=== PATIENT | male | born 1965 | race Two or more races ===

== ENCOUNTER 2021-12-14 15:26 | Emergency (ER) | payer BC ==
[~2021-12-14] VITALS: Ht 188 cm; Wt 101.2 kg
[2021-12-14 15:55] VITALS: BP_SYST 144
[2021-12-14 17:11] LABS: BILIRUBIN,URINE NEGATIVE (NEGATIVE); BLOOD, URINE NEGATIVE (NEGATIVE); CLARITY/URINE CLEAR (CLEAR); COLOR,URINE YELLOW (YELLOW); GLUCOSE,URINE NEGATIVE (NEGATIVE); KETONES,URINE NEGATIVE (NEGATIVE); LEUKOCYTE ESTERASE ,URINE NEGATIVE (NEGATIVE); NITRITE, URINE NEGATIVE (NEGATIVE); PROTEIN URINE NEGATIVE (NEGATIVE); UROBILINOGEN,URINE 0.2 (0.2-1.0)
[2021-12-14 17:31] LABS: BASOPHILS % (AUTO) 0.6 % (0.0-2.0); CALCIUM 8.8 mg/dL (8.4-11.0); CREATININE 0.92 mg/dL (0.55-1.30); EOSINOPHILS % (AUTO) 0.6 % (0.0-4.0); HEMATOCRIT 43.7 % (36-54); LYMPHOCYTES % (AUTO) 24.8 % (20.5-51.5); MEAN CORPUSCULAR VOLUME 94 fL (79.0-98.0); MONOCYTES # (AUTO) 0.6 K/uL (0.0-1.0); MONOCYTES % (AUTO) 7.2 % (1.7-9.3); NEUTROPHILS # (AUTO) 5.4 K/uL (1.8-7.7); NEUTROPHILS % (AUTO) 66.8 % (40.0-70.0); PLATELET COUNT (AUTO) 208 K/uL (130-430); POTASSIUM 4.1 mmol/L (3.5-5.1); RED BLOOD CELL COUNT(AUTO) 4.68 MIL/uL (4.2-6.2); RED CELL DISTRIBUTION WIDTH 12.6 % (9.0-15.0); WHITE BLOOD COUNT (AUTO) 8.2 K/uL (4.8-10.8)
[2021-12-14 17:37] LABS: ALBUMIN 3.7 g/dL (3.4-4.8); TOTAL BILIRUBIN 0.6 mg/dL (0.0-1.0)
--- NOTE | 2021-12-14 18:08 | NUR ---
Patient to ER bed 3 to gown for evaluation. Side rails up. Report given to [place] MAY.
--- NOTE | 2021-12-14 18:10 | NUR ---
RECEIVED PT FROM YADIRA CHURCH. PT BIBS FOR ABDOMINAL PAIN, PT STATES HE WAS PREVIOUSLY DX WITH DIVERTICULOSIS AND TAKING ABT FOR IT, THE PAIN HAD SUBSIDED AND IS BACK NOW, 09/21. RESP E/U. ON R/A. NORMAL S1S2 NOTED. DENIES N/V/DC. SKIN WARM, INTACT, NO EDEMA. DISTAL PULSES NORMAL. SIDERAILS UP X2.
--- NOTE | 2021-12-14 18:54 | NUR ---
UNABLE TO OBTAIN IV INSERTION. WILL ENDORSE TO ONCOMING NURSE.
[2021-12-14] MEDS ORDERED: KETOROLAC TROMETHAMINE 30 MG VIAL IVP ONE (19:15)
[2021-12-14] MEDS ORDERED: PIPERACILLIN/TAZO 3.375 GM in NS 50 ML IV ONE (19:15)
[2021-12-14] MEDS ORDERED: KETOROLAC TROMETHAMINE 60 MG/2 ML VIAL IM ONE ×2 (19:15)
[2021-12-14] MEDS ORDERED: NACL 0.9% 1,000 ML IV ONE (19:15)
--- NOTE | 2021-12-14 19:15 | NUR ---
RECEIVED REPORT AND CARE FROM YADIRA HAWTHORNE. PATIENT LYING SEMI FOWLERS ON STRETCHER RESTING COMFORTABLY. AWAITING CT SCAN. DENIES NEEDS/CONCERNS AT THIS TIME. BED IN LOW POSITION, WHEELS LOCKED AND SR UP X 2 FOR SAFETY. WILL CONTINUE TO MONITOR.
--- NOTE | 2021-12-14 19:21 | NUR ---
ALL CARE ENDORSED TO YADIRA CANTRELL. ALL QUESTIONS AND CONCERNS ADDRESSED.
[2021-12-14] MEDS ORDERED: PIPERACILLIN/TAZOBACTAM 3.375 GM/VIAL (ZOSYN) IV ONE (19:47)
--- NOTE | 2021-12-14 22:15 | NUR ---
IVF AND IV ABX COMPLETE. TOLERATED WELL. CURRENTLY DENIES ABD PAIN/DISCOMFORT. MD WAS AT BEDSIDE. WILL CONTINUE TO MONITOR.
[2021-12-14] MEDS ORDERED: CIPR500T5 PO (22:45)
[2021-12-14] MEDS ORDERED: METR-154 PO (22:45)
[2021-12-14 23:21] VITALS: BP_SYST 110
--- NOTE | 2021-12-14 23:21 | NUR ---
Patient given written and verbal discharge instructions and verbalizes understanding. ER MD discussed with patient the results and treatment provided. Patient in stable condition. ID arm band removed. IV catheter removed intact and dressing applied, no active bleeding. Rx of CIPRO AND FLAGYL given. Patient educated on pain management and to follow up with PMD. Pain Scale . Opportunity for questions provided and answered. Medication side effect fact sheet provided.
== END 2021-12-14 23:22 | disposition home or self-care (01) ==
LOC: SED 15:26
DX: K57.32 Diverticulitis of large intestine without perforation or abscess without bleeding (principal); R10.32 Left lower quadrant pain; Z79.899 Other long term (current) drug therapy
CPT/HCPCS: 99285; 74176; 96365; 96375; 80053; 85025; 36415; 76376; 81003; J1885; J2543